=== PATIENT | male | born 1995 | race Caucasian/White ===

== ENCOUNTER 2022-04-08 11:50 | Emergency (ER) | payer SELFPAY ==
[2022-04-08 12:37] VITALS: BP 128/67; PULSE 88; RESP 17; TEMP 37.1; O2SAT 96; BMI 21.2
--- NOTE | 2022-04-08 12:43 | HMH.EDUTC ---
[facility] Disposition Clinical Impression: Viral syndrome Disposition: Home, Self-Care Condition on Discharge: Good Instructions: DI for Viral Syndrome, DI for COVID-19 (Suspected or Confirmed ), Preventing the Spread of Coronavirus Discharge Instructions Additional Instructions: Drink plenty of fluids. Take tylenol or ibuprofen for pain or fever. Take the medications as directed. Follow up with your regular doctor. GO TO THE ER FOR ANY WORSENING SYMPTOMS Quarantine until you know the results of your covid-19 test. Notify your school or workplace of your results and follow their instructions regarding return to work/school. Prescriptions: Ondansetron [Zofran 4mg ODT] 4 mg PO Q8HP PRN #12 tab PRN Reason: Nausea Transmission Status: Received by [facility] [id number] Benzonatate [Benzonatate 100mg cap] 100 mg PO TIDP PRN #30 cap PRN Reason: Cough Transmission Status: Received by [facility] [id number] Referrals: Provider,Referral, [Primary Care Provider] - Time of Disposition: 13:08 Medical Decision Making - Medical Records Medical records reviewed: No: I reviewed the patient's medical records. - Ben Inquiry Pt receiving controlled substance: No Vital Signs: 04/08/22 12:37 04/08/22 13:14 Temperature 98.7 F 98.7 F Temperature Source Oral Pulse Rate 88 Pulse Rate [Left] 88 Respiratory Rate 17 17 Blood Pressure 128/67 Blood Pressure [Right Arm] 128/67 Blood Pressure Mean [Right Arm] 87 02 Sat by Pulse Oximetry 96 - Lab Data Lab results reviewed: Yes: I reviewed the patient's lab results. [facility] HPI - General Stated complaint: covid test Time Seen by Provider: 04/08/22 12:43 - History of Present Illness Provider Complaint: She is here with complaints of malaise and body aches for the past 2 days. - Related Data Previous Rx's Medication Instructions Recorded Benzonatate [Benzonatate 100mg 100 mg PO TIDP PRN #30 cap 04/08/22 cap] Ondansetron [Zofran 4mg ODT] 4 mg PO Q8HP PRN #12 tab 04/08/22 Allergies Allergy/AdvReac Type Severity Reaction Status Date / Time No Known Allergies Allergy Verified 04/08/22 12:49 [facility] History - Hepatitis A Screen Attestation statement:: This patient has been screened for Hepatitis A risk factors. I have reviewed the patient's past medical history: Yes ROS Obtained: Yes All systems reviewed & no additional complaints - Constitutional Constitutional: Reports as per HPI - Eyes Eyes: Denies eye discharge - ENT Ears, Nose, Mouth, and Throat: Reports as per HPI - Cardiovascular Cardiovascular: Denies chest pain - Respiratory Respiratory: Reports as per HPI Physical Exam - General General appearance: alert, in no apparent distress - Head Head exam: atraumatic, normocephalic, normal inspection - Eye Eye exam: Present: normal appearance, PERRL, EOMI - ENT ENT exam: Present: normal exam, normal oropharynx, mucous membranes moist, TM's normal bilaterally, normal external ear exam - Neck Neck exam: Present: normal inspection, full ROM, trachea midline. Absent: meningismus, lymphadenopathy - Chest Chest inspection: Present: normal inspection, symmetric chest wall rise. Absent: tenderness - Respiratory Respiratory exam: Present: normal lung sounds bilaterally. Absent: respiratory distress - Cardiovascular Cardiovascular exam: Present: regular rate, normal rhythm. Absent: JVD - Abdominal Exam Abdominal exam: Present: soft, normal bowel sounds. Absent: distention, tenderness, guarding - Extremities Exam Extremities exam: Present: normal inspection, full ROM, normal capillary refill. Absent: calf tenderness - Back Exam Back exam: Present: normal inspection. Absent: tenderness - Neurological Exam Neurological exam: Present: alert, oriented X3 - Psychiatric Psychiatric exam: Present: normal affect, normal mood - Skin Skin exam: Present: warm, dry, in
[2022-04-08 13:14] VITALS: BP 128/67; PULSE 88; RESP 17; TEMP 37.1
== END 2022-04-08 13:21 | disposition home or self-care (01) ==
PROVIDERS: Emergency Provider Nurse Practitioner Family
DX: B34.9 Viral infection, unspecified (principal); R53.81 Other malaise; Z20.822 Contact with and (suspected) exposure to COVID-19
CPT/HCPCS: 99213; C9803; G0463; U0003; U0005